=== PATIENT | female | born 1965 | race American Indian/Alaskan Native ===

== ENCOUNTER 2016-12-04 21:16 | Emergency (ER) | payer MEDICARE ==
[2016-12-04 22:27] LABS: Basophils % (Auto) 0.9 % (0.0-1.8); Eosinophils % (Auto) 1.9 % (0.0-4.3); Hematocrit 36.2 % (30.3-42.9); Hemoglobin 11.9 gm/dl (10.1-14.3); Mean Corpuscular HGB Conc 33 % (30-34); Mean Corpuscular Volume 79 fl (79-97); Platelet Count 309 K/mm3 (140-440); Red Blood Count 4.61 M/mm3 (3.65-5.03); Red Cell Distribution Width 18.4 % (13.2-15.2); White Blood Count 8.7 K/mm3 (4.5-11.0)
[2016-12-04 22:34] LABS: Mean Corpuscular Hemoglobin 26 pg (28-32)
[2016-12-04 22:45] LABS: Anion Gap 19 mmol/L; Blood Urea Nitrogen 19 mg/dL (7-17); Calcium 8.6 mg/dL (8.4-10.2); Carbon Dioxide 27 mmol/L (22-30); Chloride 99.2 mmol/L (98-107); Glucose 109 mg/dL (65-100); Potassium 3.5 mmol/L (3.6-5.0); Sodium 142 mmol/L (137-145)
[2016-12-04] MEDS ORDERED: CATAPRES ONE (22:48)
[2016-12-05] MEDS ORDERED: PEPCID IV ONE (01:30)
[2016-12-05] MEDS ORDERED: DILAUDID IV ONE (01:30)
[2016-12-05] MEDS ORDERED: ZOFRAN IV ONE (01:30)
--- NOTE | 2016-12-05 01:36 | Emergency Department Report ---
ED Abdominal Pain HPI - General Chief Complaint: Chest Pain Stated Complaint: CHEST TIGHTNESS X'S 4 DAYS Time Seen by Provider: 12/05/16 01:17 Source: patient, old records reviewed (no previous medical visit) Mode of arrival: Stretcher Limitations: No Limitations - History of Present Illness Initial Comments: 51 year old female with a past medical history hypertension, COPD, schizophrenia , bipolar disorder, and pancreatitis presents to the hospital with complaints of chest pain and abdominal pain. Complaint #1: Chest pain Patient has had upper anterior chest wall pain times one week. Pain is sharp, intermittent, worse with movement and palpation. Patient complaining of shortness of breath that feels similar to her emphysema shortness of breath. No complaints of cough or fever. Pain is moderate to severe in intensity Recent travel from [place] 3 weeks ago. Complaint #2: Epigastric pain 3 days. Patient states that it feels like her previous pancreatitis. She was told that her pain could person a past history of alcohol use but patient denies heavy alcohol use currently or in the past. She also denies being told that she has any gallbladder issues. No previous abdominal surgeries. The past 3 days patient has had frequent vomiting or by mouth intolerance. She also has had multiple episodes of diarrhea. She denies fever, melena, or hematochezia. Patient also states she has been out of her Zoloft, Klonopin, and Depakote for 2 weeks since she missed her appointment because she was out of town. Patient states she was taking Klonopin 2 mg 3 times a day Severity scale (0 -10): 10 - Related Data Previous Rx's Medication Instructions Recorded Last Taken Type ALBUTEROL Inhaler [ProAir HFA 2 puff IH QID PRN #1 inhalation 12/05/16 Unknown Rx Inhaler] Famotidine [Pepcid] 20 mg PO BID #30 tablet 12/05/16 Unknown Rx Ondansetron [Zofran Odt] 4 mg PO Q8HR PRN #20 tab.rapdis 12/05/16 Unknown Rx traMADol [Ultram 50 MG tab] 50 mg PO Q6HR PRN #20 tablet 12/05/16 Unknown Rx Allergies Allergy/AdvReac Type Severity Reaction Status Date / Time No Known Allergies Allergy Unverified 12/04/16 21:43 ED Review of Systems ROS: Stated complaint: CHEST TIGHTNESS X'S 4 DAYS Other details as noted in HPI Comment: All other systems reviewed and negative Other: Constitutional: No fevers chills Eyes: No eye pain visual changes ENT: No ear pain or throat pain Neck: Denies pain Respiratory: As per HPI Cardiovascular: As per HPI GI: As per HPI : Denies dysuria Musculoskeletal: Denies back pain Skin: Denies rash, lesions, erythema Neurologic: Denies headache, numbness, weakness Psychiatric: Denies suicidal ideation, hallucinations ED Past Medical Hx - Past Medical History Previous Medical History?: Yes Hx Hypertension: Yes Hx Psychiatric Treatment: Yes (schizophrenia, bipolar) Hx Asthma: Yes Additional medical history: bradycardia. Pancreatitis - Surgical History Past Surgical History?: No - Social History Smoking Status: Never Smoker Substance Use Type: None - Medications Home Medications: Home Medications Medication Instructions Recorded Confirmed Last Taken Type ALBUTEROL Inhaler [ProAir HFA 2 puff IH QID PRN #1 inhalation 12/05/16 Unknown Rx Inhaler] Famotidine [Pepcid] 20 mg PO BID #30 tablet 12/05/16 Unknown Rx Ondansetron [Zofran Odt] 4 mg PO Q8HR PRN #20 tab.rapdis 12/05/16 Unknown Rx traMADol [Ultram 50 MG tab] 50 mg PO Q6HR PRN #20 tablet 12/05/16 Unknown Rx ED Physical Exam - General Limitations: No Limitations - Other Other exam information: General: No limitations, patient is alert in no acute distress Head exam: Atraumatic, normocephalic Eyes exam: Normal appearance, pupils equal reactive to light, extraocular movements intact ENT: Moist mucous membrane, normal oropharynx Neck exam: Normal inspection, full range of motion, no meningismus nontender Respiratory exam: Clear to auscultation bilateral, no wheezes, rales, crackles. Reproducible upper anterior right chest wall tenderness Cardiovascular: Normal rate and rhythm, normal heart sounds Abdomen: Soft, nondistended, epigastric tenderness, right upper quadrant tenderness, with normal bowel sounds, no rebound, or guarding Extremity: Full range of motion normal inspection no deformity Back: Normal Inspection, full range of motion, no tenderness Neurologic: Alert, oriented x3, cranial nerves intact, no motor or sensory deficit Psychiatric: normal affect, normal mood Skin: Warm, dry, intact ED Course Vital Signs 12/04/16 12/04/16 12/05/16 21:46 22:50 01:56 Temperature 98 F 98.1 F Pulse Rate 58 L 64 60 Respiratory 18 20 Rate Blood Pressure 153/103 Blood Pressure 126/89 119/59 [Left] O2 Sat by Pulse 100 97 99 Oximetry 12/05/16 12/05/16 02:07 02:37 Temperature Pulse Rate Respiratory 20 20 Rate Blood Pressure Blood Pressure [Left] O2 Sat by Pulse Oximetry - Reevaluation(s) Reevaluation #1: 12/05/16 01:37 Dilaudid, Zofran, Pepcid ordered. Awaiting d-dimer. ED Medical Decision Making - Lab Data Result diagrams: 12/04/16 22:04 12/04/16 22:04 Lab Results 12/04/16 12/04/16 12/04/16 Range/Units 22:04 22:04 22:04 WBC 8.7 (4.5-11.0) K/mm3 RBC 4.61 (3.65-5.03) M/mm3 Hgb 11.9 (10.1-14.3) gm/dl Hct 36.2 (30.3-42.9) % MCV 79 (79-97) fl MCH 26 L (28-32) pg MCHC 33 (30-34) % RDW 18.4 H (13.2-15.2) % Plt Count 309 (140-440) K/mm3 Lymph % (Auto) 32.1 (13.4-35.0) % [place] % (Auto) 6.9 (0.0-7.3) % Eos % (Auto) 1.9 (0.0-4.3) % Baso % (Auto) 0.9 (0.0-1.8) % Lymph # 2.8 (1.2-5.4) K/mm3 [place] # 0.6 (0.0-0.8) K/mm3 Eos # 0.2 (0.0-0.4) K/mm3 Baso # 0.1 (0.0-0.1) K/mm3 Seg Neutrophils % 58.2 (40.0-70.0) % Seg Neutrophils # 5.1 (1.8-7.7) K/mm3 D-Dimer (0-234) ng/mlDDU Sodium 142 (137-145) mmol/L Potassium 3.5 L (3.6-5.0) mmol/L Chloride 99.2 (98-107) mmol/L Carbon Dioxide 27 (22-30) mmol/L Anion Gap 19 mmol/L BUN 19 H (7-17) mg/dL Creatinine 1.0 (0.7-1.2) mg/dL Estimated GFR 58 ml/min BUN/Creatinine Ratio 19.00 % Glucose 109 H (65-100) mg/dL Calcium 8.6 (8.4-10.2) mg/dL Total Bilirubin (0.1-1.2) mg/dL Direct Bilirubin (0-0.2) mg/dL AST (5-40) units/L ALT (7-56) units/L Alkaline Phosphatase (35-129) units/L Troponin T < 0.010 (0.00-0.029) ng/mL Total Protein (6.3-8.2) g/dL Albumin (3.9-5) g/dL Albumin/Globulin Ratio % Lipase (13-60) units/L HCG, Qual Negative (Negative) Urine Color (Yellow) Urine Turbidity (Clear) Urine pH (5.0-7.0) Ur Specific [place] (1.003-1.030) Urine Protein (Negative) mg/dL Urine Glucose (UA) (Negative) mg/dL Urine Ketones (Negative) mg/dL Urine Blood (Negative) Urine Nitrite (Negative) Urine Bilirubin (Negative) Urine Urobilinogen (<2.0) mg/dL Ur Leukocyte Esterase (Negative) Urine WBC (Auto) (0.0-6.0) /HPF Urine RBC (Auto) (0.0-6.0) /HPF U Epithel Cells (Auto) (0-13.0) /HPF Urine Bacteria (Auto) (Negative) /HPF Urine HCG, Qual (Negative) 12/05/16 12/05/16 12/05/16 Range/Units 00:51 01:23 01:30 WBC (4.5-11.0) K/mm3 RBC (3.65-5.03) M/mm3 Hgb (10.1-14.3) gm/dl Hct (30.3-42.9) % MCV (79-97) fl MCH (28-32) pg MCHC (30-34) % RDW (13.2-15.2) % Plt Count (140-440) K/mm3 Lymph % (Auto) (13.4-35.0) % [place] % (Auto) (0.0-7.3) % Eos % (Auto) (0.0-4.3) % Baso % (Auto) (0.0-1.8) % Lymph # (1.2-5.4) K/mm3 [place] # (0.0-0.8) K/mm3 Eos # (0.0-0.4) K/mm3 Baso # (0.0-0.1) K/mm3 Seg Neutrophils % (40.0-70.0) % Seg Neutrophils # (1.8-7.7) K/mm3 D-Dimer (0-234) ng/mlDDU Sodium (137-145) mmol/L Potassium (3.6-5.0) mmol/L Chloride (98-107) mmol/L Carbon Dioxide (22-30) mmol/L Anion Gap mmol/L BUN (7-17) mg/dL Creatinine (0.7-1.2) mg/dL Estimated GFR ml/min BUN/Creatinine Ratio % Glucose (65-100) mg/dL Calcium (8.4-10.2) mg/dL Total Bilirubin < 0.20 (0.1-1.2) mg/dL Direct Bilirubin < 0.2 (0-0.2) mg/dL AST 9 (5-40) units/L ALT 7 (7-56) units/L Alkaline Phosphatase 81 (35-129) units/L Troponin T < 0.010 (0.00-0.029) ng/mL Total Protein 6.9 (6.3-8.2) g/dL Albumin 3.6 L (3.9-5) g/dL Albumin/Globulin Ratio 1.1 % Lipase 14 (13-60) units/L HCG, Qual (Negative) Urine Color Yellow (Yellow) Urine Turbidity Slightly-cloudy (Clear) Urine pH 5.0 (5.0-7.0) Ur Specific [place] 1.026 (1.003-1.030) Urine Protein 30 mg/dl (Negative) mg/dL Urine Glucose (UA) Neg (Negative) mg/dL Urine Ketones Neg (Negative) mg/dL Urine Blood Lg (Negative) Urine Nitrite Neg (Negative) Urine Bilirubin Neg (Negative) Urine Urobilinogen < 2.0 (<2.0) mg/dL Ur Leukocyte Esterase Sm (Negative) Urine WBC (Auto) 5.0 (0.0-6.0) /HPF Urine RBC (Auto) 2.0 (0.0-6.0) /HPF U Epithel Cells (Auto) 30.0 H (0-13.0) /HPF Urine Bacteria (Auto) 1+ (Negative) /HPF Urine HCG, Qual Negative (Negative) 12/05/16 12/05/16 Range/Units 02:07 02:15 WBC (4.5-11.0) K/mm3 RBC (3.65-5.03) M/mm3 Hgb (10.1-14.3) gm/dl Hct (30.3-42.9) % MCV (79-97) fl MCH (28-32) pg MCHC (30-34) % RDW (13.2-15.2) % Plt Count (140-440) K/mm3 Lymph % (Auto) (13.4-35.0) % [place] % (Auto) (0.0-7.3) % Eos % (Auto) (0.0-4.3) % Baso % (Auto) (0.0-1.8) % Lymph # (1.2-5.4) K/mm3 [place] # (0.0-0.8) K/mm3 Eos # (0.0-0.4) K/mm3 Baso # (0.0-0.1) K/mm3 Seg Neutrophils % (40.0-70.0) % Seg Neutrophils # (1.8-7.7) K/mm3 D-Dimer 261.91 H (0-234) ng/mlDDU Sodium (137-145) mmol/L Potassium (3.6-5.0) mmol/L Chloride (98-107) mmol/L Carbon Dioxide (22-30) mmol/L Anion Gap mmol/L BUN (7-17) mg/dL Creatinine (0.7-1.2) mg/dL Estimated GFR ml/min BUN/Creatinine Ratio % Glucose (65-100) mg/dL Calcium (8.4-10.2) mg/dL Total Bilirubin (0.1-1.2) mg/dL Direct Bilirubin (0-0.2) mg/dL AST (5-40) units/L ALT (7-56) units/L Alkaline Phosphatase (35-129) units/L Troponin T < 0.010 (0.00-0.029) ng/mL Total Protein (6.3-8.2) g/dL Albumin (3.9-5) g/dL Albumin/Globulin Ratio % Lipase (13-60) units/L HCG, Qual (Negative) Urine Color (Yellow) Urine Turbidity (Clear) Urine pH (5.0-7.0) Ur Specific [place] (1.003-1.030) Urine Protein (Negative) mg/dL Urine Glucose (UA) (Negative) mg/dL Urine Ketones (Negative) mg/dL Urine Blood (Negative) Urine Nitrite (Negative) Urine Bilirubin (Negative) Urine Urobilinogen (<2.0) mg/dL Ur Leukocyte Esterase (Negative) Urine WBC (Auto) (0.0-6.0) /HPF Urine RBC (Auto) (0.0-6.0) /HPF U Epithel Cells (Auto) (0-13.0) /HPF Urine Bacteria (Auto) (Negative) /HPF Urine HCG, Qual (Negative) - EKG Data -: EKG Interpreted by Me (sinus rate 54, arrhythmia, lateral T inversion, no ST elevation CA) - EKG Data When compared to previous EKG there are: previous EKG unavailable - Radiology Data Radiology results: report reviewed CT angiogram chest: No PE or dissection no acute findings CT abdomen and pelvis IV contrast: Prominent stool, correlate for constipation, fibroid uterus. Descending colon diverticulosis. No diverticulitis. Mild emphysema. Some scarring or atelectasis noted in the lingula - Medical Decision Making Other diagnosis: Gastritis, benzo withdrawal, COPD By mouth potassium given prior to discharge. Patient reports for the better when ED treatment. Upon discharge patient states that she was at [facility] prior to coming here and she plans to go back to [facility]. I was not informed her that prior to ED workup. Since patient will be going to [facility] for admission after discharge I will provide a copy of her lab work and imaging results to take with her. - Differential Diagnosis costochondritis, PE, biliary colic, cholecystitis, pancreatitis, gastroente Critical Care Time: No Critical care attestation.: If time is entered above; I have spent that time in minutes in the direct care of this critically ill patient, excluding procedure time. ED Disposition Clinical Impression: Chest wall pain, Gastroenteritis Disposition: - TO HOME OR SELFCARE Is pt being admited?: No Does the pt Need Aspirin: No Condition: Stable Instructions: Costochondritis (ED), Gastroenteritis (ED) Additional Instructions: Take the medication as prescribed. I have provided a copy of the lab work and imaging results to take to anchor for your admission Prescriptions: ALBUTEROL Inhaler [ProAir HFA Inhaler] 2 puff IH QID PRN #1 inhalation PRN Reason: Shortness Of Breath Famotidine [Pepcid] 20 mg PO BID #30 tablet Ondansetron [Zofran Odt] 4 mg PO Q8HR PRN #20 tab.rapdis PRN Reason: Nausea And Vomiting traMADol [Ultram 50 MG tab] 50 mg PO Q6HR PRN #20 tablet PRN Reason: Pain Referrals: PRIMARY CARE, [Primary Care Provider] - 3-5 Days BISMARK HUERTA MD [Staff Physician] - 3-5 Days Time of Disposition: 05:19
[2016-12-05 01:40] LABS: Bilirubin,Urine NEG (Negative); Blood,Urine LG (Negative); Ketones,Urine NEG (Negative); Leukocyte Esterase,Urine SM (Negative); Nitrite,Urine NEG (Negative); Urobilinogen,Urine < 2.0 mg/dL (<2.0)
[2016-12-05 01:43] LABS: Bacteria,Urine 1+ /HPF (Negative)
[2016-12-05 01:57] VITALS: BP 119/59
[2016-12-05 03:06] LABS: Alanine Aminotransferase 7 units/L (7-56); Albumin 3.6 g/dL (3.9-5); Albumin/Globulin Ratio 1.1 %; Alkaline Phosphatase 81 units/L (35-129); Bilirubin,Total < 0.20 mg/dL (0.1-1.2); Lipase 14 units/L (13-60); Total Protein 6.9 g/dL (6.3-8.2)
[2016-12-05 03:28] LABS: Bilirubin,Direct < 0.2 mg/dL (0-0.2)
[2016-12-05] MEDS ORDERED: NACL ONE (03:43)
--- NOTE | 2016-12-05 04:24 | Cat Scan Report ---
FINAL REPORT EXAM: CT ANGIO CHEST HISTORY: cp, sob TECHNIQUE: CT angiography of the chest was performed. Images were obtained after the administration of IV contrast. Coronal and sagittal reformatted images were obtained. Rotational MIPS reformatted images also obtained. PRIORS: None. FINDINGS: There are no filling defects seen within the pulmonary arterial circulation to suggest pulmonary embolism. There is no aortic dissection seen. There is no significant mediastinal or hilar mass seen. There are no pleural effusions seen. There is mild emphysema. There is no focal infiltrate seen. There is no pneumothorax. IMPRESSION: There is no pulmonary embolism or aortic dissection seen.
--- NOTE | 2016-12-05 05:13 | Cat Scan Report ---
FINAL REPORT EXAM: CT ABDOMEN PELVIS W CON HISTORY: epigastric pain, vomiting TECHNIQUE: CT abdomen and pelvis performed. Images extend from diaphragm to pubic symphysis. Images were obtained after the administration of IV contrast. No oral contrast was administered. Coronal and sagittal reformatted images were obtained. PRIORS: None. FINDINGS: Images are mildly limited by motion artifact. There is some mild emphysema in visualized lower lungs. There is some atelectasis versus scarring in the lingula. The visualized liver, spleen, pancreas, adrenal glands and kidneys demonstrate no significant abnormalities. There is no abdominal aortic aneurysm. There is no evidence of intestinal obstruction. The appendix is normal. There is diverticulosis involving the descending colon. There is no evidence of acute diverticulitis. There is prominent stool in the proximal 2/3 of the colon. Correlate for constipation. There is no free intraperitoneal air. There is a fibroid uterus. The bladder is unremarkable. There is a right hip prosthesis creating streak artifact through the lower pelvis. IMPRESSION: Prominent stool. Correlate for constipation. Fibroid uterus. Descending colon diverticulosis. No acute diverticulitis seen. Mild emphysema. Some scarring or atelectasis noted in lingula.
[2016-12-05] MEDS ORDERED: K-DUR PO ONE (05:22)
--- NOTE | 2016-12-05 07:59 | XRay Report ---
CHEST TWO VIEWS: 12/05/16 CLINICAL: Chest pain. COMPARISON: None FINDINGS: Normal heart and pulmonary vasculature. The lungs are clear. Mild blunting of the left costophrenic angle.The bones and soft tissues are unremarkable. IMPRESSION: No acute cardiopulmonary process.Mild scarring at the left costophrenic angle.
== END 2016-12-05 06:09 | disposition home or self-care (01) ==
LOC: ED 21:16
DX: K52.9 Noninfective gastroenteritis and colitis, unspecified (principal); R07.89 Other chest pain; I10 Essential (primary) hypertension; F20.9 Schizophrenia, unspecified; F31.9 Bipolar disorder, unspecified; J45.909 Unspecified asthma, uncomplicated
CPT/HCPCS: 36415; 71020; 71275; 74177; 80048; 80074; 81001; 81025; 83690; 84484; 84703; 85025; 85379; 93005; 93010; 96374; 96375; 99285; J1170; J2405; Q9967